=== PATIENT | male | born 1995 | race Caucasian/White ===

== ENCOUNTER 2018-04-12 12:47 | Emergency (ER) | payer SELFPAY ==
[2018-04-12 13:27] LABS: Absolute Lymphocytes (CBC) 2.1 K/uL (0.7-4.9); Absolute Monocytes 0.6 K/uL (0.1-1.3); Eosinophils % 1.9 % (0-4.4); Lymphocytes % 35.6 % (15.3-44.8); MCH 22.3 pg (27.0-35.0); MCV 72.2 fL (80-100); MPV 8.7 fL (7.6-11.3); Monocytes % 10.2 % (3.3-12.3); RBC Red Blood Cell Count 4.85 M/uL (4.33-5.43)
--- NOTE | 2018-04-12 13:36 | RAD REPORT ---
EXAM DESCRIPTION: US - Abdomen Exam Limited - 04/12/2018 1:31 pm CLINICAL HISTORY: Abdominal pain, epigastric pain COMPARISON: CT study May 2017 FINDINGS: No gallstones, sludge or other abnormalities within the gallbladder lumen. There is no wal l thickening or pericholecystic fluid. No common duct stone or biliary tree dilatation identified. IMPRESSION: Normal gallbladder and biliary tree ultrasound.
[2018-04-12 14:02] LABS: Urine White Blood Cell Casts OK
[2018-04-12 14:06] LABS: Anisocytosis 1+; Blood Morphology Comment NOTED (NOT SEEN); Platelet Estimate ADEQ
[2018-04-12 14:54] LABS: Bicarbonate 26 mEq/L (21-31); Glucose Level 92 mg/dL (65-120); Lipase 20 U/L (22-51); Sodium Level 136 mEq/L (135-145)
[2018-04-12 15:01] LABS: ALT/SGPT 23 IU/L (10-60); AST/SGOT 25 IU/L (10-42); Albumin 4.5 g/dL (3.2-5.5); Alkaline Phosphatase 63 IU/L (42-121); Amylase Level 51 U/L (28-100); BUN Blood Urea Nitrogen 15 mg/dL (6-20); Bilirubin Direct 0.1 mg/dL (0-0.2); Bilirubin Total 0.4 mg/dL (0.3-1.2); Protein, Total 7.6 g/dL (6.0-8.3)
--- NOTE | 2018-04-12 15:29 | ER ---
Nurse's Notes [facility] Name: Jose A Boggs Age: 22 yrs Sex: Male : 1995 Arrival Date: 04/12/2018 Time: 12:51 Bed 24 Private MD: Diagnosis: Upper abdominal pain, unspecified Presentation: 04/12 12:55 Presenting complaint: Patient states: i have been having abdominal pain since last tw2 Wednesday, with nauseousness and diarrhea. Transition of care: patient was not received from another setting of care. Onset of symptoms was April 12, 2018. Risk Assessment: Do you want to hurt yourself or someone else? Patient reports no desire to harm self or others. Initial Sepsis Screen: Does the patient meet any 2 criteria? No. Patient's initial sepsis screen is negative. Does the patient have a suspected source of infection? No. Patient's initial sepsis screen is negative. Care prior to arrival: None. 12:55 Method Of Arrival: Ambulatory tw2 12:55 Acuity: JOSEPH 3 tw2 Historical: - Allergies: 12:57 No Known Allergies; tw2 - Home Meds: 12:57 None [Active]; tw2 - PSHx: 12:57 None; tw2 - Immunization history:: Adult Immunizations. - Social history:: Smoking status: Patient/guardian denies using tobacco. Screenin:05 Abuse screen: Denies threats or abuse. Nutritional screening: No deficits noted. tl3 Tuberculosis screening: No symptoms or risk factors identified. Fall Risk None identified. Assessment: 13:05 General: Appears in no apparent distress. comfortable, slender, well groomed, well tl3 developed, well nourished, Behavior is calm, cooperative, appropriate for age. Pain: Complains of pain in right upper quadrant and left upper quadrant. Neuro: Level of Consciousness is awake, alert, obeys commands, Oriented to person, place, time, situation, Appropriate for age. Cardiovascular: No deficits noted. Heart tones S1 S2 present Capillary refill Patient's skin is warm and dry. Respiratory: No deficits noted. Airway is patent Trachea midline Respiratory effort is even, unlabored, Respiratory pattern is regular, symmetrical. GI: Bowel sounds present X 4 quads. Abd is soft. GI: Reports upper abdominal pain, diarrhea, since one week ago, seen at another facility and dx with colitis and placed on flagyl and Cipro, diarrhea persists. : No signs and/or symptoms were reported regarding the genitourinary system. EENT: No signs and/or symptoms were reported regarding the EENT system. Derm: No signs and/or symptoms reported regarding the dermatologic system. Musculoskeletal: No signs and/or symptoms reported regarding the musculoskeletal system. 14:05 Reassessment: Patient appears in no apparent distress at this time. No changes from tl3 previously documented assessment. Patient and/or family updated on plan of care and expected duration. Pain level reassessed. Patient is alert, oriented x 3, equal unlabored respirations, skin warm/dry/pink. 15:24 Reassessment: Patient appears in no apparent distress at this time. No changes from tl3 previously documented assessment. Patient and/or family updated on plan of care and expected duration. Pain level reassessed. Patient is alert, oriented x 3, equal unlabored respirations, skin warm/dry/pink. Vital Signs: 12:56 BP 145 / 66; Pulse 50; Resp 17; Temp 97.3; Pulse Ox 100% on R/A; Weight 72.57 kg (R); tw2 Height 5 ft. 10 in. (177.80 cm); Pain 8/10; 14:11 BP 125 / 76; Pulse 54; Resp 18; Pulse Ox 100% on R/A; tm3 14:30 BP 137 / 94; Pulse 47; Resp 18; Pulse Ox 96% ; tl3 15:24 BP 127 / 66; Pulse 46; Resp 16; Pulse Ox 100% on R/A; tl3 12:56 Body Mass Index 22.96 (72.57 kg, 177.80 cm) tw2 ED Course: 12:51 Patient arrived in ED. rg4 12:55 Kely Nunez FNP-C is PHCP. kb 12:55 Jason Cosby MD is Attending Physician. kb 12:56 Triage completed. tw2 12:56 Arm band placed on. tw2 13:01 Leah Iglesias, RN is Primary Nurse. tl3 13:05 Patient has correct armband on for positive identification. Bed in low position. Call tl3 light in reach. Side rails up X 1. Adult w/ patient. 13:05 No provider procedures requiring assistance completed. tl3 13:18 Inserted saline lock: 20 gauge in right forearm, using aseptic technique. Blood tl3 collected. 13:18 ultra sound at bedside. tl3 13:21 US Abdomen Limited In Process Unspecified. EDMS 13:22 Ultrasound completed. aa4 13:49 Lab(s) recollected, sent to lab. tm3 14:10 Warm blanket given. tm3 14:27 Lab(s) recollected, sent to lab. tm3 14:57 Amylase, Serum Sent. tl3 14:57 Basic Metabolic Panel Sent. tl3 14:57 CBC with Diff Sent. tl3 14:57 Hepatic Function Sent. tl3 14:58 Lipase Sent. tl3 15:34 IV discontinued, intact, bleeding controlled, No redness/swelling at site. Pressure tl3 dressing applied. Administered Medications: No medications were administered Outcome: 15:28 Discharge ordered by . kb 15:34 Discharged to home ambulatory. tl3 15:34 Condition: stable 15:34 Discharge instructions given to patient, family, Instructed on discharge instructions, follow up and referral plans. medication usage, Demonstrated understanding of instructions, follow-up care, medications. 15:35 Patient left the ED. tl3 Signatures: Dispatcher [employer] EDMS Kely Nunez, SPEECH COACH-C SPEECH COACH-Ckb Pepe Cardenas tm3 Ruth Leigh aa4 Amy Wood, RN RN tw2 Roula Rachel rg4 Leah Iglesias, RN RN tl3
--- NOTE | 2018-04-12 15:29 | EDPHYS ---
Physician Documentation [facility] Name: Jose A Boggs Age: 22 yrs Sex: Male : 1995 Arrival Date: 04/12/2018 Time: 12:51 Bed 24 Private MD: ED Physician Jason Cosby HPI: 04/12 15:03 This 22 yrs old Male presents to ER via Ambulatory with complaints of kb Abdominal Pain. 15:03 The patient presents with abdominal pain in the right upper quadrant. Onset: The kb symptoms/episode began/occurred 1 week(s) ago. The symptoms do not radiate. Associated signs and symptoms: Pertinent positives: diarrhea, nausea, Pertinent negatives: anorexia, blood in stools, chest pain, constipation, dysuria, fever, headache, hematuria, palpitations, shortness of breath, testicular pain, vomiting, vomiting blood. The symptoms are described as constant. Modifying factors: The symptoms are alleviated by nothing, the symptoms are aggravated by nothing. Severity of pain: At its worst the pain was moderate in the emergency department the pain is unchanged. The patient has not experienced similar symptoms in the past. The patient has not recently seen a physician. Pt states he has had abdominal pain for one week. Went to [facility] ER on Wednesday and was admitted. States he was told there was inflammation in his colon and put on antibiotics. He had a colonoscopy while admitted that showed inflammatory bowel disease. was seen by a surgeon that told him it was definitely not his appendix. Pt was discharged on with Flagyl and Cipro, but still having pain. Historical: - Allergies: 12:57 No Known Allergies; tw2 - Home Meds: 12:57 None [Active]; tw2 - PSHx: 12:57 None; tw2 - Immunization history:: Adult Immunizations. - Social history:: Smoking status: Patient/guardian denies using tobacco. ROS: 15:07 Constitutional: Negative for fever, chills, and weight loss, Cardiovascular: Negative kb for chest pain, palpitations, and edema, Respiratory: Negative for shortness of breath, cough, wheezing, and pleuritic chest pain, Back: Negative for injury and pain, MS/Extremity: Negative for injury and deformity, Skin: Negative for injury, rash, and discoloration, Neuro: Negative for headache, weakness, numbness, tingling, and seizure. 15:07 Abdomen/GI: Positive for abdominal pain, nausea, diarrhea. Exam: 15:06 Constitutional: This is a well developed, well nourished patient who is awake, alert, kb and in no acute distress. Head/Face: Normocephalic, atraumatic. Chest/axilla: Normal chest wall appearance and motion. Nontender with no deformity. No lesions are appreciated. Cardiovascular: Regular rate and rhythm with a normal S1 and S2. No gallops, murmurs, or rubs. Normal PMI, no JVD. No pulse deficits. Respiratory: Lungs have equal breath sounds bilaterally, clear to auscultation and percussion. No rales, rhonchi or wheezes noted. No increased work of breathing, no retractions or nasal flaring. Back: No spinal tenderness. No costovertebral tenderness. Full range of motion. Skin: Warm, dry with normal turgor. Normal color with no rashes, no lesions, and no evidence of cellulitis. MS/ Extremity: Pulses equal, no cyanosis. Neurovascular intact. Full, normal range of motion. Neuro: Awake and alert, GCS 15, oriented to person, place, time, and situation. Cranial nerves II-XII grossly intact. Motor strength 5/5 in all extremities. Sensory grossly intact. Cerebellar exam normal. Normal gait. 15:06 Abdomen/GI: Inspection: abdomen appears normal, Bowel sounds: normal, in all quadrants, Palpation: soft, in all quadrants, nontender, in the left upper quadrant, right lower quadrant and left lower quadrant, mild abdominal tenderness, in the right upper quadrant. Vital Signs: 12:56 BP 145 / 66; Pulse 50; Resp 17; Temp 97.3; Pulse Ox 100% on R/A; Weight 72.57 kg (R); tw2 Height 5 ft. 10 in. (177.80 cm); Pain 8/10; 14:11 BP 125 / 76; Pulse 54; Resp 18; Pulse Ox 100% on R/A; tm3 14:30 BP 137 / 94; Pulse 47; Resp 18; Pulse Ox 96% ; tl3 15:24 BP 127 / 66; Pulse 46; Resp 16; Pulse Ox 100% on R/A; tl3 12:56 Body Mass Index 22.96 (72.57 kg, 177.80 cm) tw2 MDM: 12:58 Patient medically screened. kb 15:06 Data reviewed: vital signs, nurses notes. Data interpreted: Pulse oximetry: on room air kb is 96 %. Interpretation: normal. Counseling: I had a detailed discussion with the patient and/or guardian regarding: the historical points, exam findings, and any diagnostic results supporting the discharge/admit diagnosis, lab results, the need for outpatient follow up, a family practitioner, a general surgeon, a manager advanced, to return to the emergency department if symptoms worsen or persist or if there are any questions or concerns that arise at home. 04/12 13:07 Order name: Amylase, Serum kb 04/12 13:07 Order name: Basic Metabolic Panel kb 04/12 13:07 Order name: CBC with Diff kb 04/12 13:07 Order name: Hepatic Function kb 04/12 13:07 Order name: Lipase kb 04/12 13:08 Order name: Amylase Level; Complete Time: 15:03 EDIN 04/12 13:07 Order name: IV Saline Lock; Complete Time: 14:57 kb 04/12 13:07 Order name: Labs collected and sent; Complete Time: 14:57 kb 04/12 13:07 Order name: US Abdomen Limited; Complete Time: 13:39 kb 04/12 13:08 Order name: Basic Metabolic Panel; Complete Time: 15:03 EDIN 04/12 13:08 Order name: CBC with Automated Diff; Complete Time: 14:08 EDIN 04/12 13:08 Order name: Liver (Hepatic) Function; Complete Time: 15:03 EDIN 04/12 13:08 Order name: Lipase; Complete Time: 15:03 EDIN 04/12 13:29 Order name: CBC Smear Scan; Complete Time: 14:08 EDIN 04/12 13:07 Order name: Urine Dipstick-Ancillary (obtain specimen); Complete Time: 14:57 kb 04/12 13:31 Order name: Labs - recollect needed; Complete Time: 14:57 bd 04/12 14:08 Order name: Labs - recollect needed; Complete Time: 14:57 bd Administered Medications: No medications were administered Disposition: 17:40 Co-signature as Attending Physician, Jason Cosby MD. rn Disposition: 04/12/18 15:28 Discharged to Home. Impression: Upper abdominal pain, unspecified. - Condition is Stable. - Discharge Instructions: Abdominal Pain, Adult, [id number]. - Medication Reconciliation Form, Thank You Letter, Antibiotic Education, Prescription Opioid Use form. - Follow up: Emergency Department; When: As needed; Reason: Worsening of condition. Follow up: Private Physician; When: 2 - 3 days; Reason: Recheck today's complaints, Continuance of care, Re-evaluation by your physician. - Notes: Continue medications that were previously prescribed. Signatures: Dispatcher [employer] EDMS Kely Nunez, SOURAV-Segundo BENJAMIN-Debbie Segura Roman, MD MD rn Amy Wood RN RN tw2 eLah Iglesias, PRIYANK RN tl3 Corrections: (The following items were deleted from the chart) 15:08 15:03 Pt states he has had abdominal pain for one week. Went to [facility] ER on wednesday and was admitted. States he was told there was inflammation in his colon and put on antibiotics. He had a colonoscopy while admitted that showed inflammatory bowel disease. was seen by a surgeon that told him it was definitely not his appendix . kb 15:35 15:28 04/12/2018 15:28 Discharged to Home. Impression: Upper abdominal pain, tl3 unspecified. Condition is Stable. Forms are Medication Reconciliation Form, Thank You Letter, Antibiotic Education, Prescription Opioid Use. Follow up: Emergency Department; When: As needed; Reason: Worsening of condition. Follow up: Private Physician; When: 2 - 3 days; Reason: Recheck today's complaints, Continuance of care, Re-evaluation by your physician. kb
== END 2018-04-12 15:35 | disposition home or self-care (01) ==
LOC: ER 12:47
DX: R10.11 Right upper quadrant pain (principal)
CPT/HCPCS: 36415; 76705; 80048; 80076; 82150; 83690; 85025; 99284